=== PATIENT | female | born 1940 | race Caucasian/White ===

== ENCOUNTER 2019-02-20 12:45 | Emergency (ER) | payer OTHER ==
[~2019-02-20] VITALS: Ht 160 cm; Wt 58.1 kg
[2019-02-20 12:53] VITALS: BP 121/55; Ht 160 cm; Wt 58.1 kg
== END 2019-02-20 15:38 | disposition left against medical advice (07) ==
LOC: ED 12:45
DX: Z53.21 Procedure and treatment not carried out due to patient leaving prior to being seen by health care provider (principal)
CPT/HCPCS: 82962